=== PATIENT | female | born 1945 | race Caucasian/White ===

== ENCOUNTER → 2022-01-11 | Outpatient (CLI) | payer MEDICARE, MEDICAID | LOC: RAD 15:35 | DX: C34.12 Malignant neoplasm of upper lobe, left bronchus or lung (principal); C43.62 Malignant melanoma of left upper limb, including shoulder; C79.31 Secondary malignant neoplasm of brain; C77.9 Secondary and unspecified malignant neoplasm of lymph node, unspecified | CPT/HCPCS: A9585 ==